=== PATIENT | male | born 1940 | race Caucasian/White ===

== ENCOUNTER 2022-06-29 09:29 | Outpatient (CLI) | payer OTHER, SELFPAY ==
[2022-06-29 11:31] LABS: Chloride* 103 mmol/L (96-114); Potassium* 4.2 mmol/L (3.6-5.1); Sodium* 138 mmol/L (135-149)
[2022-06-29 11:33] LABS: Cholesterol* 134 mg/dL (90-199); Creatinine* 0.9 mg/dL (0.5-1.5); Estimated Glomerular Filt Rate 84 ml/min
[2022-06-29 11:34] LABS: Blood Urea Nitrogen* 22 mg/dL (7-30); Carbon Dioxide* 30 mmol/L (20-32); Glucose* 100 mg/dL (60-115); Triglycerides* 55 mg/dL (40-149)
[2022-06-29 11:35] LABS: Calcium* 8.8 mg/dL (8.4-10.6); HDL Cholesterol* 54 mg/dL (>=40); LDL Cholesterol Calculated 69 mg/dL (<100)
== END 2022-06-29 09:30 | disposition home or self-care (01) ==
PROVIDERS: PCP Internal Medicine; Visit Provider Internal Medicine
DX: Z00.00 Encounter for general adult medical examination without abnormal findings (principal); I10 Essential (primary) hypertension; I25.10 Atherosclerotic heart disease of native coronary artery without angina pectoris; E66.9 Obesity, unspecified; Z12.5 Encounter for screening for malignant neoplasm of prostate
CPT/HCPCS: 80048; 80061

== ENCOUNTER 2022-09-09 16:50 | Emergency (ER) | payer OTHER, SELFPAY ==
[2022-09-09 17:03] VITALS: BP 183/81; PULSE 96; RESP 16; TEMP 36.3; O2SAT 97
== END 2022-09-09 18:31 | disposition left against medical advice (07) ==
LOC: ED 18:31
PROVIDERS: PCP Internal Medicine
DX: Z53.21 Procedure and treatment not carried out due to patient leaving prior to being seen by health care provider (principal)
CPT/HCPCS: 99199

== ENCOUNTER 2022-09-11 08:44 | Outpatient (CLI) | payer OTHER, SELFPAY ==
[2022-09-11 10:09] LABS: Chloride* 106 mmol/L (96-114); Sodium* 143 mmol/L (135-149)
[2022-09-11 10:11] LABS: Creatinine* 0.9 mg/dL (0.5-1.5); Estimated Glomerular Filt Rate 84 ml/min
[2022-09-11 10:12] LABS: Blood Urea Nitrogen* 26 mg/dL (7-30); Calcium* 9.1 mg/dL (8.4-10.6); Carbon Dioxide* 33 mmol/L (20-32); Glucose* 108 mg/dL (60-115)
== END 2022-09-11 08:45 | disposition home or self-care (01) ==
LOC: NFLDREF 08:44
PROVIDERS: PCP Internal Medicine; Visit Provider Internal Medicine
DX: I25.10 Atherosclerotic heart disease of native coronary artery without angina pectoris (principal); I48.19 Other persistent atrial fibrillation
CPT/HCPCS: 80048

== ENCOUNTER 2023-06-23 09:18 | Outpatient (CLI) | payer OTHER, SELFPAY | END 2023-06-23 09:19 | disposition home or self-care (01) | LOC: NFLDREF 20:51 | PROVIDERS: PCP Internal Medicine; Referring Provider Internal Medicine; Visit Provider Internal Medicine | DX: R31.9 Hematuria, unspecified (principal); N30.90 Cystitis, unspecified without hematuria; R39.9 Unspecified symptoms and signs involving the genitourinary system | CPT/HCPCS: 87086; 87186 ==

== ENCOUNTER 2023-07-12 07:32 | Outpatient (CLI) | payer OTHER, SELFPAY | END 2023-07-12 07:33 | disposition home or self-care (01) | LOC: NFLDREF 07-16 10:07 | PROVIDERS: PCP Internal Medicine; Referring Provider Internal Medicine; Visit Provider Internal Medicine | DX: E78.5 Hyperlipidemia, unspecified (principal); I10 Essential (primary) hypertension | CPT/HCPCS: 80048; 80061 ==

== ENCOUNTER 2023-08-12 13:56 | Outpatient (CLI) | payer OTHER, SELFPAY | END 2023-08-12 13:57 | disposition home or self-care (01) | LOC: NFLDREF 08-13 11:15 | PROVIDERS: PCP Internal Medicine; Referring Provider Internal Medicine; Visit Provider Registered Nurse | DX: R10.9 Unspecified abdominal pain (principal); N39.0 Urinary tract infection, site not specified | CPT/HCPCS: 87086; 87186 ==

== ENCOUNTER 2023-09-07 13:05 | Outpatient (CLI) | payer OTHER, SELFPAY ==
--- OUTSIDE RECORDS SUMMARY | 2023-09-10 13:51 | XMS_ITS | Clinical Summary ---
Author Name Unknown Organization [facility] Address [place], [place] [address] Care Team Providers Care Clinical Research Director Name Role Phone Steven Shabazz MD Primary Care Provider Active Problems Problem Noted Date Diagnosed Date PHT (pulmonary hypertension) 08/01/2021 Coronary artery disease invo lving [place] coronary artery of [place] heart without angina pectoris 07/26/2020 Morbid obesity due to excess calories 07/26/2020 HTN (hypertension) 07/26/2020 Mixed hyperlipidemia 07/26/2020 Atrial flutter 07/26/2020 Social History Tobacco Use Types Packs/Day Years Used Date Smoking Tobacco: Never Assessed Social Connections Answer Date Recorded Frequency of Communication with Friends and Fami ly Not on file 08/18/2021 Financial Resource Strain Answer Date R ecorded Difficulty of Paying Living Expenses Not on file 08/18/2021 Difficulty of Paying Living Expenses Not on file 08/18/2021 Sex and Gender Information Value Date Recorded Sex Assigned at Not on file Gender Identity Not on file Sexual Orientation Not on file Plan of Treatment Health Maintenance Due Date Last Done Comments Tdap 1949 Depression screening for age 12+ 1950 BMI (ht and wt on same day) for age 18+ 1956 Tetanus booster 1958 Zoster (shingles) series for age 50+ (1 of 2) 1988 Medicare Wellness for age 65+ 2003 Pneumococcal series for age 65+ (1 of 1 - PCV) 2003 COVID-19 vaccine series ( season) 2023 05/08/2022, 12/03/2021, 06/03/2021, Additional history exists Influenza for age 65+ 04/23/2023 Care Teams Clinical Research Director Relationship Specialty Start Date End Date Steven Shabazz MD [address] [place] [address] PCP - General Internal Medicine 07/15/20
== END 2023-09-07 13:06 | disposition home or self-care (01) ==
LOC: NFLDREF 09-10 13:49
PROVIDERS: PCP Internal Medicine; Referring Provider Internal Medicine; Visit Provider Internal Medicine
DX: R30.0 Dysuria (principal); N30.90 Cystitis, unspecified without hematuria; F03.90 Unspecified dementia, unspecified severity, without behavioral disturbance, psychotic disturbance, mood disturbance, and anxiety; R32 Unspecified urinary incontinence
CPT/HCPCS: 87086; 87186

== ENCOUNTER 2023-09-15 13:43 | Outpatient (CLI) | payer OTHER, SELFPAY | END 2023-09-15 13:44 | disposition home or self-care (01) | LOC: RAD 13:50 | PROVIDERS: PCP Internal Medicine; Visit Provider Internal Medicine | DX: I48.19 Other persistent atrial fibrillation (principal); I51.7 Cardiomegaly; I35.1 Nonrheumatic aortic (valve) insufficiency; I34.0 Nonrheumatic mitral (valve) insufficiency; I07.1 Rheumatic tricuspid insufficiency; I25.10 Atherosclerotic heart disease of native coronary artery without angina pectoris | CPT/HCPCS: 93306 ==

== ENCOUNTER 2023-09-21 15:38 | Outpatient (REF) | payer OTHER, SELFPAY ==
[2023-09-21 15:48] LABS: Basophils Absolute Auto 0.02 K/uL (0.00-0.30); Basophils Percent Auto 0.4 % (0.0-3.0); Eosinophils Absolute Auto 0.26 K/uL (0.00-0.50); Eosinophils Percent Auto 5.3 % (0.0-7.0); Hematocrit 41.5 % (37.0-53.0); Hemoglobin* 13.3 gm/dL (13.5-17.5); Immature Granulocytes Abs Auto 0.01 K/uL (0.00-0.30); Immature Granulocytes Pct Auto 0.2 %; Lymphocytes Absolute Auto 1.02 K/uL (0.90-2.90); Mean Corpuscular HGB Conc 32 gm/dL (32-36); Mean Corpuscular Hemoglobin 32 pg (26-34); Mean Corpuscular Volume 100 fL (80-100); Monocytes Percent Auto 9.7 % (0.0-11.0); Neutrophils Absolute Auto 3.08 K/uL (1.7-7.0); Neutrophils Percent Auto 63.4 % (42.0-72.0); Platelet Count* 189 K/uL (140-440); RDW Coefficient of Variation % 14.4 % (11.5-15.5); Red Blood Count 4.15 m/uL (4.30-5.90); White Blood Count* 4.86 K/uL (4.50-11.00)
[2023-09-21 16:08] LABS: Slide Review Reflex No
[2023-09-21 16:49] LABS: Albumin* 4.1 g/dL (3.3-5.0); Chloride* 105 mmol/L (96-114)
[2023-09-21 16:50] LABS: Potassium* 4.7 mmol/L (3.6-5.1); Sodium* 145 mmol/L (135-149)
[2023-09-21 16:52] LABS: Alkaline Phosphatase* 73 U/L (40-150); Anion Gap 12 mEq/L (7-15); Aspartate Amino Transferase* 37 U/L (12-35); Bilirubin Direct* 0.4 mg/dL (0.0-0.5); Bilirubin Total* 1.2 mg/dL (0.1-1.5); Blood Urea Nitrogen* 17 mg/dL (7-30); Carbon Dioxide* 28 mmol/L (20-32); Estimated Glomerular Filt Rate 74 ml/min; Total Protein* 6.8 g/dL (6.0-8.3)
[2023-09-21 16:53] LABS: Alanine Aminotransferase* 19 U/L (4-50); Calcium* 9.2 mg/dL (8.4-10.6); Glucose* 100 mg/dL (60-115)
[2023-09-21 17:11] LABS: NT Pro B Type NatriureticPept* 17100 pg/mL
[2023-09-23 20:56] LABS: Anti-Nuclear Ab(ANA)IgG ELISA None Detected (None Detected)
== END 2023-09-21 15:39 | disposition home or self-care (01) ==
LOC: NPINS 15:38
PROVIDERS: Internal Medicine; PCP Internal Medicine
DX: I50.32 Chronic diastolic (congestive) heart failure (principal)
CPT/HCPCS: 80048; 80076; 83880; 84443; 85025; 86039

== ENCOUNTER 2023-10-12 11:10 | Outpatient (REF) | payer OTHER, SELFPAY ==
[2023-10-12 11:37] LABS: Chloride* 103 mmol/L (96-114); Potassium* 3.9 mmol/L (3.6-5.1); Sodium* 137 mmol/L (135-149)
[2023-10-12 11:40] LABS: Anion Gap 6 mEq/L (7-15); Blood Urea Nitrogen* 21 mg/dL (7-30); Carbon Dioxide* 28 mmol/L (20-32); Creatinine* 0.9 mg/dL (0.5-1.5); Estimated Glomerular Filt Rate 84 ml/min
[2023-10-12 11:41] LABS: Glucose* 95 mg/dL (60-115)
== END 2023-10-12 11:11 | disposition home or self-care (01) ==
LOC: NPINS 11:10
PROVIDERS: PCP Internal Medicine
DX: I50.32 Chronic diastolic (congestive) heart failure (principal)
CPT/HCPCS: 80048

== ENCOUNTER 2024-03-21 03:43 | Outpatient (CLI) | payer OTHER, SELFPAY | END 2024-03-21 03:44 | disposition home or self-care (01) | LOC: AMB 03-22 03:08 | PROVIDERS: PCP Internal Medicine; Visit Provider Family Medicine | DX: R53.1 Weakness (principal) | CPT/HCPCS: A0998 ==

== ENCOUNTER 2024-03-23 08:02 | Outpatient (CLI) | payer OTHER, SELFPAY | END 2024-03-23 08:03 | disposition home or self-care (01) | LOC: NFLDREF 03-24 07:23 | PROVIDERS: PCP Internal Medicine; Referring Provider Internal Medicine; Visit Provider Internal Medicine | DX: R30.0 Dysuria (principal); N30.00 Acute cystitis without hematuria; R54 Age-related physical debility | CPT/HCPCS: 87086; 87186 ==

== ENCOUNTER 2024-04-03 13:39 | Outpatient (CLI) | payer OTHER, SELFPAY | END 2024-04-03 13:40 | disposition home or self-care (01) | LOC: RAD 13:39 | PROVIDERS: PCP Internal Medicine; Visit Provider Internal Medicine | DX: I27.20 Pulmonary hypertension, unspecified (principal); I51.7 Cardiomegaly; I35.1 Nonrheumatic aortic (valve) insufficiency; I34.0 Nonrheumatic mitral (valve) insufficiency; I07.1 Rheumatic tricuspid insufficiency | CPT/HCPCS: 93306 ==

== ENCOUNTER 2024-04-25 08:47 | Outpatient (CLI) | payer OTHER, SELFPAY ==
--- OUTSIDE RECORDS SUMMARY | 2024-04-25 08:52 | XMS_ITS | Clinical Summary ---
Author Organization [facility] Address [place], [place] [address] Care Team Providers Care Consultant [employer]. Vice President [employer] ) Name Role Phone Yaima Mcclure MD Primary Care Provider [phone]- [phone] Allergies No known active allergies Medications Medication Sig Dispensed Refills Start Date End Date Status atorvastatin (LIPITOR) 40 mg tablet Take 20 mg by mouth at bedtime. 08/10/2023 Active atenoloL (TENORMIN) 50 mg tablet Take 50 mg by mouth two times daily. Active DILT-XR 120 mg Extended-Release capsule Take 120 mg by mouth once daily. 08/29/2023 Active rivaroxaban (XARELTO) 20 mg tablet Take 20 mg by mouth once daily with evening meal. Active tamsulosin (FLOMAX) 0.4 mg capsule Take 0.4 mg by mouth at bedtime. Active clonazePAM (KLONOPIN) 0.5 mg tablet Take 0.5 mg by mouth at bedtime. Active donepeziL (ARICEPT) 5 mg tablet Take 5 mg by mouth once daily. 09/11/2023 Active zinc acetate (Galzin) 50 mg (zinc) cap Take by mouth. 50 mg 2 days a week Active Sennosides (Senna) 8.6 mg cap Take by mouth once daily if needed for Constipation. Active losartan (COZAAR) 25 mg tabletIndications :PHT (pulmonary hypertension) (HC) Take 1 Tablet (25 mg) by mouth two times daily. 60 Tablet 2 04/19/2024 Active hydroCHLOROthiazi de 25 mg tabletIndications :HTN (hypertension),PH T (pulmonary hypertension) (HC),Shortness of breath Take 1 Tablet (25 mg) by mouth once daily. 90 Tablet 3 04/19/2024 Active losartan (COZAAR) 25 mg tabletIndications :HTN (hypertension),PH T (pulmonary hypertension) (HC) Take 1 Tablet (25 mg) by mouth once daily. 30 Tablet 6 09/29/2023 04/19/2024 Discontinued (*Medication adjustment) Active Problems Problem Noted Date Diagnosed Date PHT (pulmonary hypertension) 08/01/2021 Coronary artery disease invo lving [place] coronary artery of [place] heart without angina pectoris 07/26/2020 Morbid obesity due to excess calories 07/26/2020 HTN (hypertension) 07/26/2020 Mixed hyperlipidemia 07/26/2020 Atrial flutter 07/26/2020 Encounters Date Type Department Care Team Description 04/19/2024 2:00 PM CDT Office Visit [facility] [address] [facility] [address] [place] [address] Maikel Mitchell MD CV Heart Failure Est (OVERDUE F/U. ECHO PRIOR at [facility] on 04/03 - DX: PHT (pulmonary hypertension) (HC) [I27.20] /WATCH FOR ECHO //PT STATES HE IS DOING GREAT./) 04/19/2024 Travel 04/03/2024 2:00 PM CDT Ancillary Procedure [place] [facility] [address] [place] [address] 02/08/2024 [place] [facility] [place] [address] [facility] [address] [place] [address] Maikel Mitchell MD 01/28/2024 Telephone [facility] [place] [address] [place] [address] Maikel Mitchell MD Cardiology Appointment from Last 3 Months Social History Tobacco Use Types Packs/Day Years Used Date Smoking Tobacco: Former Cigarettes Smokeless Tobacco: Never Tobacco Cessation:Counseling Given: Not Answered Alcohol Use Standard Drinks/Week Comments Yes 7 (1 standard drink = 0.6 oz pur e alcohol) one glass of wine each night Social Connections Answer Date Recorded Frequency of [...] on file Sexual Orientation Not on file Obstetrics History Last Filed Vital Signs Vital Sign Reading Time Taken Comments Blood Pressure 134/62 04/19/2024 1:56 PM CDT Pulse 63 04/19/2024 1:56 PM CDT Temperature - - Respiratory Rate - - Oxygen Saturation 98% 04/19/2024 1:56 PM CDT Inhaled Oxygen Concentration - - Weight 67.7 kg (149 lb 4.8 oz) 04/19/2024 1:56 P M CDT Height 160 cm (5' 3) 04/19/2024 1:56 PM CDT Body Mass Index 26.45 04/19/2024 1:56 PM CDT Plan of Treatment Health Maintenance Due Date Last Done Comments Tdap 1949 Depression screening for age 12+ 1950 Tetanus booster 1958 Zoster (shingles) series for age 50+ (1 of 2) 1988 RSV vaccine for adults or pr egnancy (1 - 1-dose 60+ series) 1998 Medicare Wellness for age 65+ 2003 Pneumococcal series for age 65+ (1 of 1 - PCV) 2003 COVID-19 vaccine series ( - 24 season) 2024 Influenza for age 65+ 04/23/2024 BMI (ht and wt on same day) for age 18+ 04/19/2025 0 04/19/2024, 09/29/2023 Procedures Procedure Name Priority Date/Time Associated Diagnosis Comments EKG 12 LEAD Today 04/19/2024 1:58 PM CDT HTN (hypertension) PHT (pulmonary hypertension) (HC) ECHO TTE COMPLETE WO CONTRAST Routine 04/03/2024 2:45 PM CDT PHT (pulmonary hypertension) (HC) from Last 3 Months Results * EKG 12 LEAD (04/19/2024 1:58 PM CDT) Interpretation Atrial fibrillation Nonspecific ST and T wave abnormality Abnormal ECG No previous ECGs available Ventricular Rate 63 BPM Atrial Rate BPM P-R Interval ms QRS Duration 104 ms QT 432 ms QTc 442 ms P [place] degrees R [place] 39 degrees T [place] -67 degrees 04/19/2024 1:58 PM CDT 04/21/2024 8:29 AM CDT Maikel Mitchell MD EKG ORD * ECHO TTE COMPLETE WO CONTRAST (04/03/2024 2:45 PM CDT) AORTIC VALVE MEAN PG 4 mmHg EJECTION FRACTION 39 % PEAK TR VELOCITY 3.6 m/s LVEDD 5.3 cm MITRAL VALVE MR ERO 17 mm2 EJECTION FRACTION 40 - 45% Anatomical Region Laterality Modality Ultrasound 04/03/2024 1:51 PM CDT Narrative 04/03/2024 2:59 PM CDT ECHOCARDIOGRAM NACHO GREGORY ?Accession#: ?? [id number] : ?1940 83 years Study Date: ?? 04/03/2024 1:51:05 PM Gender: M ? BP: ? 150/76 mmHg Height: 168.00 cm ? BSA: ?2.01 m? ? ? Weight: 91.00 kg ?Tech: ? MJW ?Referring MD: MAIKEL MITCHELL Site: ? [facility] Reading Location: Mobile-OP Patient Location: Outpatient. Procedure: 2D, Color Doppler and Spectral Doppler. Indication for study: Pulmonary HTN Cardiac Rhythm: Irregular.Study quality: Good. Final Impressions: 1. Normal LV size, mildly increased wall thickness, mildly reduced global systolic function with an estimated EF of 40 - 45%. 2. Right ventricular cavity size is normal, global systolic RV function is mildly reduced. 3. Severe biatrial enlargement. 4. The aortic valve is trileaflet and sclerotic, no stenosis and mild to moderate regurgitation. 5. The mitral valve is normal, moderate mitral regurgitation. 6. Moderate tricuspid regurgitation. 7. Severely increased estimated pulmonary pressures by tricuspid regurgitation velocity and right atrial pressure (50 mmHg plus RAP). 8. The aortic sinus is normal for age/sex/bsa with a maximal diameter of 3.9 cm. 9. Compared to prior study, LVEF is lower, PA pressures are lower. Chamber Sizes and Function Normal left ventricular size, mildly increased wall thickness, mildly reduced global systolic function with an estimated EF of 40 - 45%. Left atrial size is severely enlarged. Right ventricular cavity size is normal, global systolic RV function is mildly reduced. The right atrium is severely enlarged. Right atrial volume index is 57 ml/m? ? ?. Right atrial area is 32 cm? ? ?. The pulmonary artery is of normal size and origin. The sinus of Valsalva is normal for age/sex/bsa. The ascending aorta is normal sized. Valves, RV Pressures and Diastolic Function The aortic valve is trileaflet and sclerotic, no stenosis and mild to moderate regurgitation. The mitral valve is normal in structure, moderate mitral regurgitation. Indeterminate pattern of LV diastolic filling. The tricuspid valve is normal in structure. Tricuspid regurgitation is moderate. The tricuspid regurgitant velocity is 3.6 m/s, the estimated right ventricular systolic pressure is 50 mmHg plus right atrial pressure. There is severely increased estimated pulmonary pressure by tricuspid regurgitation velocity and right atrial pressure. The pulmonic valve is normal. No pulmonary regurgitation. Masses, Effusion, Shunts There is no pericardial effusion. The inferior vena cava is dilated, respiratory size variation less than 50%. No left to right shunting was detected by limited color flow Doppler interrogation of the interatrial septum. MEASUREMENTS AND CALCULATIONS 2-D Measurements and LV Function: LVID (d) 5.2 cm LV FS% (2D) ?? 19 % LVID (s) 4.2 cm LVOT diameter 2.6 cm IVS (d) ??1.2 cm HR ?51 bpm LVPW (d) 1.2 cm LA Vol index ??96 ml/m2 Ao Sinus 3.9 cm RA Vol index ??57 ml/m2 Asc Ao ?? 3.1 cm RA area ? 32 cm? ? ? LA ? 6.0 cm RV Max 4C (d) 3.2 cm Diastology: Mitral ?Tissue Doppler E Peak 1.2 m/s ??e', Septum ? 0.07 m/s DT ? 115 msec e', Lateral ?0.08 m/s ?E/e' Average ?? 16.28 Aortic Valve: Vmax ? 1.3 m/s ??NOEMI (V) ?? 2.67 cm? AI P 1/2 638 msec VTI ?0.33 m ?? NOEMI (I) ?? 2.53 cm? ? ? LVOT V max ? 0.7 m/s ??Max PG ?6 mmHg LVOT VTI ? 0.16 m ?? Mean PG ?? 4 mmHg SV ? 84 ml ?Dim Index 0.49 SV index ? 42 ml/m? ? ? CO ?4.3 l/min AV Ejection Time 0.33 sec CI ?2.1 l/min/m? ? ? AV Flow Rate ? 252 ml/s Mitral Valve: MVA ? 6.6 cm? ? ? MR ERO ??0.17 cm? ? ? MV P 1/2 ??33 msec MR Vol. 36 ml MV Mean G 2 mmHg ??MR TVI ??2.14 m MV VTI ?0.52 m Tricuspid Valve and estimated PA pressures: TR Vmax 3.6 m/s TAPSE 1.0 cm TR maxG 50 mmHg Pulmonic Valve: PV AT 58 msec . This study was interpreted by an [facility] accredited facility. CC: HIM ([facility]) [facility]. ??Final ?? Procedure Note Don Marc MD - 04/03/2024 ECHOCARDIOGRAM NACHO GREGORY : 1940 83 years Study Date: 04/03/2024 1:51:05 PM Gender: M BP: 150/76 mmHg Height: 168.00 cm BSA: 2.01 m? ? ? Weight: 91.00 kg Tech: SHALONDA Referring MD: MAIKEL MITCHELL Site: [facility] Reading Location: Mobile-OP Patient Location: Outpatient. Procedure: 2D, Color Doppler and Spectral Doppler. Indication for study: Pulmonary HTN Cardiac Rhythm: Irregular.Study quality: Good. Final Impressions: 1. Normal LV size, mildly increased wall thickness, mildly reduced globalsystolic function with an estimated EF of 40 - 45%. 2. Right ventricular cavity size is normal, global systolic RV functionis mildly reduced. 3. Severe biatrial enlargement. 4. The aortic valve is trileaflet and sclerotic, no stenosis and mild tomoderate regurgitation. 5. The mitral valve is normal, moderate mitral regurgitation. 6. Moderate tricuspid regurgitation. 7. Severely increased estimated pulmonary pressures by tricuspidregurgitation velocity and right atrial pressure (50 mmHg plus RAP). 8. The aortic sinus is normal for age/sex/bsa with a maximal diameter of3.9 cm. 9. Compared to prior study, LVEF is lower, PA pressures are lower. Chamber Sizes and Function Normal left ventricular size, mildly increased wall thickness, mildlyreduced global systolic function with an estimated EF of 40 - 45%. Leftatrial size is severely enlarged. Right ventricular cavity size is normal,global systolic RV function is mildly reduced. The right atrium isseverely enlarged. Right atrial volume index is 57 ml/m? ? ?. Right atrialarea is 32 cm? ? ?. The pulmonary artery is of normal size and origin. Thesinus of Valsalva is normal for age/sex/bsa. The ascending aorta is normalsized. Valves, RV Pressures and Diastolic Function The aortic valve is trileaflet and sclerotic, no stenosis and mild tomoderate regurgitation. The mitral valve is normal in structure, moderatemitral regurgitation. Indeterminate pattern of LV diastolic filling. Thetricuspid valve is normal in structure. Tricuspid regurgitation ismoderate. The tricuspid regurgitant velocity is 3.6 m/s, the estimatedright ventricular systolic pressure is 50 mmHg plus right atrial pressure.There is severely increased estimated pulmonary pressure by tricuspidregurgitation velocity and right atrial pressure. The pulmonic valve isnormal. No pulmonary regurgitation. Masses, Effusion, Shunts There is no pericardial effusion. The inferior vena cava is dilated,respiratory size variation less than 50%. No left to right shunting wasdetected by limited color flow Doppler interrogation of the interatrialseptum. MEASUREMENTS AND CALCULATIONS 2-D Measurements and LV Function: LVID (d) 5.2 cm LV FS% (2D) 19 % LVID (s) 4.2 cm LVOT diameter 2.6 cm IVS (d) 1.2 cm HR 51 bpm LVPW (d) 1.2 cm LA Vol index 96 ml/m2 Ao Sinus 3.9 cm RA Vol index 57 ml/m2 Asc Ao 3.1 cm RA area 32 cm? ? ? LA 6.0 cm RV Max 4C (d) 3.2 cm Diastology: Mitral Tissue Doppler E Peak 1.2 m/s e', Septum 0.07 m/s DT 115 msec e', Lateral 0.08 m/s E/e' Average 16.28 Aortic Valve: Vmax 1.3 m/s NOEMI (V) 2.67 cm? ? ? AI P 1/2 638 msec VTI 0.33 m NOEMI (I) 2.53 cm? ? ? LVOT V max 0.7 m/s Max PG 6 mmHg LVOT VTI 0.16 m Mean PG 4 mmHg SV 84 ml Dim Index 0.49 SV index 42 ml/m? ? ? CO 4.3 l/min AV Ejection Time 0.33 sec CI 2.1 l/min/m? ? ? AV Flow Rate 252 ml/s Mitral Valve: MVA 6.6 cm? ? ? MR ERO 0.17 cm? ? ? MV P 1/2 33 msec MR Vol. 36 ml MV Mean G 2 mmHg MR TVI 2.14 m MV VTI 0.52 m Tricuspid Valve and estimated PA pressures: TR Vmax 3.6 m/s TAPSE 1.0 cm TR maxG 50 mmHg Pulmonic Valve: PV AT 58 msec . This study was interpreted by an [facility] accredited facility. CC: HIM (med records) [facility]. Final Maikel Mitchell MD ECHO ORD from Last 3 Months Care Teams Consultant [employer]. Vice President [employer] ) Relationship Specialty Start Date End Date Yaima Mcclure MD [address] [place] [address] PCP - General Internal Medicine 09/29/23
[2024-04-25 09:52] LABS: NT Pro B Type NatriureticPept* 8630 pg/mL
[2024-04-26 14:56] LABS: Chloride* 104 mmol/L (96-114); Potassium* 4.3 mmol/L (3.6-5.1); Sodium* 137 mmol/L (135-149)
[2024-04-26 14:59] LABS: Anion Gap 6 mEq/L (7-15); Blood Urea Nitrogen* 36 mg/dL (7-30); Calcium* 8.9 mg/dL (8.4-10.6); Carbon Dioxide* 27 mmol/L (20-32); Creatinine* 1.4 mg/dL (0.5-1.5); Estimated Glomerular Filt Rate 49 ml/min; Glucose* 116 mg/dL (60-115)
== END 2024-04-25 08:48 | disposition home or self-care (01) ==
PROVIDERS: PCP Internal Medicine; Visit Provider Internal Medicine
DX: I27.20 Pulmonary hypertension, unspecified (principal)
CPT/HCPCS: 36415; 80048; 83880

== ENCOUNTER 2024-05-21 16:27 | Emergency (ER) | payer OTHER, SELFPAY ==
[2024-05-21 16:41] VITALS: BP 171/56; PULSE 61; RESP 18; TEMP 36.8; O2SAT 98; BMI 30.5
--- NOTE | 2024-05-21 16:54 | CRLHL7_ITS ---
For Patients: As a result of the Century Cures Act, medical imaging exams and procedure reports are released immediately into your electronic medical record. You may view this report before your referring provider. If you have questions, please contact your health care provider. Indication: Constipation, recent abdominal surgery Technique: Abdomen 3 view. Comparison: None. Findings/Impression: Bowel: Nonobstructive bowel gas pattern. Moderate stool burden. Soft tissues: No free air. Clips throughout the pelvis, likely related to hernia repair. Bones: Mild degenerative disease of the spine. Dictated by Roselia Gutierrez MD @ 05/21/2024 5:28:47 PM (Electronically Signed)
--- NOTE | 2024-05-21 16:55 | ED.GENADULT ---
HPI - General Adult General Chief complaint: Constipation Stated complaint: bowel surgery, padding coming out Time Seen by Provider: 05/21/24 16:32 History of Present Illness HPI narrative: [age] year white male who lives in [facility] with his who reports that he has had bowel movement problems over the last couple of days he typically has intermittent trouble with constipation. He has had this chronically. He has been trying to self impact. She presents to the ER for evaluation. He has dimension is has very unclear story, I did consult with his regarding why he is here today. He does report that he had a bowel movement today. Related Data Home Medications ?Medication ?Instructions ?Recorded ?Confirmed zinc gluconate 50 mg tablet 50 mg PO .Wednesday & 09/04/22 03/23/24 clobetasol 0.05 % topical cream 1 applic topical DIRECTED PRN 01/21/23 03/23/24 desonide 0.05 % topical cream 1 applic topical BID PRN 01/21/23 03/23/24 ketoconazole 2 % shampoo 1 applic topical DIRECTED PRN 01/21/23 03/23/24 fexofenadine 180 mg tablet 180 mg PO QDAY PRN 03/18/23 03/23/24 (Aller-Fex) fluticasone 500 mcg-salmeterol 50 1 inh inhalation BID PRN 03/18/23 03/23/24 mcg/dose blistr powdr for inhalation triamcinolone acetonide 0.1 % 1 applic topical BID-TID 03/22/23 03/23/24 topical cream sennosides 8.6 mg capsule (senna) 17.2 mg PO QDAY 09/07/23 03/23/24 losartan 25 mg tablet 25 mg PO DAILY 02/15/24 03/23/24 Previous Rx's ?Medication ?Instructions ?Recorded sodium phosphates 19 gram-7 118 ml DC QDAY PRN constipation 09/09/22 gram/118 mL enema (Fleet Enema) #266 mL albuterol sulfate 90 mcg/actuation 2 inh inhalation Q6H PRN shortness 07/19/23 aerosol inhaler of breath or wheezing #8.5 grams atenolol 50 mg tablet 50 mg PO BID #180 tabs 07/19/23 atorvastatin 40 mg tablet 20 mg (1/2 x 40 mg) PO .Bedtime 07/19/23 #45 tabs diltiazem HCl 120 mg 120 mg PO DAILY #90 caps 07/19/23 capsule,extended release 24 hr donepezil 5 mg tablet (Aricept) 5 mg PO QDAY #90 tabs 07/19/23 rivaroxaban 20 mg tablet 20 mg PO DAILY #90 tabs 07/19/23 tamsulosin 0.4 mg capsule 0.4 mg PO BID #180 caps 07/19/23 clonazepam 0.5 mg tablet 0.5 mg PO QDAY Anxiety #90 tabs 03/08/24 atenolol 50 mg tablet 50 mg PO BID #14 tabs 04/26/24 Allergies Allergy/AdvReac Type Severity Reaction Status Date / Time No Known Drug Allergies Allergy Verified 03/23/24 07:57 Review of Systems Status of ROS: Reports: 6 or more systems reviewed and unremarkable except as noted in History and below and unobtainable due to mental status PFS PFS Medical History Health care directive on file ?Z78.9 - Other specified health status (ICD-10) Surgical History History of umbilical hernia repair (1997) ?Z98.890 - Other specified postprocedural states (ICD-10) ?Z87.19 - Personal history of other diseases of the digestive system (ICD-10) History of tonsillectomy and adenoidectomy ?Z90.89 - Acquired absence of other organs (ICD-10) History of inguinal hernia repair (1983) ?Z98.890 - Other specified postprocedural states (ICD-10) ?Z87.19 - Personal history of other diseases of the digestive system (ICD-10) History of coronary artery bypass surgery (06/22/00) ?Z95.1 - Presence of aortocoronary bypass graft (ICD-10) History of bilateral cataract extraction ?Z98.41 - Cataract extraction status, right eye (ICD-10) ?Z98.42 - Cataract extraction status, left eye (ICD-10) History of appendectomy (1982) ?Z90.49 - Acquired absence of other specified parts of digestive tract (ICD-10) Social History Narrative: Hx tobacco use What is your current living situation?: I presently have a place to live Problems where you live: no known problems In the past 12 months, utilities in danger of being shut off: no In past 12 months, lack of transportation kept you from medical appts, meetings, work, or getting things needed for daily living: no In the past 12 mos, have been you worried that your food would run out before you had money to buy more?: never true In the past 12 mos, the food you bought just didn't last and you didn't have money to buy more?: never true Smoking Status: Never smoker How often does anyone, including family, friends and others, physically hurt you: never How often does anyone, including family, friends and others, insult or talk down to you: never How often does anyone, including family, friends and others, threaten you with harm: never How often does anyone, including family, friends and others, scream or curse at you: never Little interest or pleasure in doing things: not at all Feeling down, depressed, or hopeless: not at all Exam Narrative: Exam Narrative: Objective: Vital signs show elevated blood pressure otherwise unremarkable Abdomen is benign soft nontender no masses no peritonitis bowel sounds normoactive Extremities normal Pulse regular Const: Vital Signs, click to edit/add: Vital Signs - 24 hr 05/21/24 16:41 Temperature 98.3 F Pulse Rate [Pulse Oximeter] 61 Respiratory Rate 18 Blood Pressure [Ri ght Upper Arm] 171/56 H Pulse Oximetry 98 Oxygen Delivery Me thod Room Air Course Vital Signs Vital signs: Initial Vital Signs Temperature 98.3 F 05/21/24 16:41 Temperature Source Temporal Artery Scan 05/21/24 16:41 Pulse Rate 61 05/21/24 16:41 Respiratory Rate 18 05/21/24 16:41 Blood Pressure 171/56 H 05/21/24 16:41 Blood Pressure Mean 94 05/21/24 16:41 Blood Pressure Position Supine 05/21/24 16:41 Pulse Oximetry 98 05/21/24 16:41 Oxygen Delivery Method Room Air 05/21/24 16:41 Vital Signs Temperature 98.3 F 05/21/24 16:41 Pulse Rate 61 05/21/24 16:41 Respiratory Rate 18 05/21/24 16:41 Blood Pressure 171/56 H 05/21/24 16:41 Pulse Oximetry 98 05/21/24 16:41 Oxygen Delivery Method Room Air 05/21/24 16:41 Temperature 98.3 F 05/21/24 16:41 Pulse Rate 61 05/21/24 16:41 Respiratory Rate 18 05/21/24 16:41 Blood Pressure 171/56 H 05/21/24 16:41 Pulse Oximetry 98 05/21/24 16:41 Oxygen Delivery Method Room Air 05/21/24 16:41 Medical Decision Making MDM Narrative Medical decision making narrative: 83-year-old male with history of probable constipation, chronic constipation. Will check a flat and upright abdominal x-ray. If he is constipated will given Enem[place] enema. Addendum 5:22 p.m. the patient's x-ray shows diffuse increased bowel content, probably constipation, but also does not appear to be too severe, he does appear to have air throughout his colon. Will review radiologist's report. We will give him an Enemeez enema and see if we get some results. He should be on a capful of MiraLax twice a day for the next few days as well which I think will help him pass some of his stool. I will write that on his discharge note Discharge Plan Discharge Clinical Impression: Chronic constipation Patient Disposition: Home w/ Parent or Adult Condition: Improved Additional Instructions: Recommend 1 cap of MiraLax inglass of water twice a day for the next week until looser stools. Recommend increased fiber and fluid in the diet. Recheck in the next few days if not improving. Activity Level: No Restrictions Discharge Diet: High Fiber Prescriptions: No Action zinc gluconate 50 mg tablet 50 mg PO .Wednesday & Fleet Enema 19-7 gram/118 mL enema 118 ml DC QDAY PRN (Reason: constipation) Qty: 266 2RF fexofenadine [Aller-Fex] 180 mg tablet 180 mg PO QDAY PRN atenolol 50 mg tablet 50 mg PO BID Qty: 180 3RF albuterol sulfate 90 mcg/actuation HFA aerosol inhaler 2 inh inhalation Q6H PRN (Reason: shortness of breath or wheezing) Qty: 8.5 3RF atorvastatin 40 mg tablet 20 mg PO .Bedtime Qty: 45 3RF diltiazem HCl 120 mg capsule,extended release 24hr 120 mg PO DAILY Qty: 90 3RF donepezil [Aricept] 5 mg tablet 5 mg PO QDAY Qty: 90 3RF tamsulosin 0.4 mg capsule 0.4 mg PO BID Qty: 180 3RF rivaroxaban 20 mg tablet 20 mg PO DAILY Qty: 90 3RF Rx Instructions: WITH MEAL triamcinolone acetonide 0.1 % cream 1 applic topical BID-TID senna 8.6 mg capsule 17.2 mg PO QDAY clobetasol 0.05 % cream 1 applic topical DIRECTED PRN Rx Instructions: APPLY SPARINGLY TO AFFECTED AREA 1 to 2 TIMES DAILY desonide 0.05 % cream 1 applic topical BID PRN ketoconazole 2 % shampoo 1 applic topical DIRECTED PRN Rx Instructions: Apply while showering, leave in for 3-5 minutes then wash out. fluticasone propion-salmeterol 500-50 mcg/dose blister with device 1 inh inhalation BID PRN losartan 25 mg tablet 25 mg PO DAILY clonazepam 0.5 mg tablet 0.5 mg PO QDAY Qty: 90 1RF atenolol 50 mg tablet 50 mg PO BID Qty: 14 0RF Follow Up/Referrals: Yaima Mcclure MD [Primary Care Provider] - Stand Alone Forms: [email or web address] Info Instructions
--- OUTSIDE RECORDS SUMMARY | 2024-05-21 17:00 | XMS_ITS | Clinical Summary ---
Author Organization [facility] Address [place], [place] [address] Care Team Providers Care Amf Mechanic Name Role Phone Yaima Mcclure MD Primary Care Provider [phone] Allergies No known active allergies Medications Medication [...] for Constipation. Active losartan (COZAAR) 25 mg tabletIndications:PHT (pulmonary hypertension) (HC) Take 1 Tablet (25 mg) by mouth two times daily. 60 Tablet 2 04/19/2024 Active hydroCHLOROthiazide 25 mg tabletIndications:HTN (hypertension),PHT (pulmonary hypertension) (HC),Shortness of breath Take 1 Tablet (25 mg) by mouth once daily. 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 07/26/2020 Morbid obesity due to excess calories 07/26/2020 HTN (hypertension) 07/26/2020 Mixed hyperlipidemia 07/26/2020 Atrial flutter 07/26/2020 Encounters Date Type Department Care Team Description 04/28/2024 Orders Only [facility] Staff, Other Clinical 1 scan: (1-Ord) [facility] 04/27/2024 Orders Only [facility] Staff, Other Clinical 1 scan: (1-Ord) [facility] 04/25/2024 Telephone [facility] [address] [facility] [address] [place] [address] Maikel Mitchell MD Results 04/19/2024 2:00 PM CDT Office Visit [place] [id number] [facility] [address] [place] [address] Maikel Mitchell MD CV Heart Failure Est (OVERDUE F/U. ECHO PRIOR at [facility] on 04/03 - DX: PHT (pulmonary hypertension) (HC) [I27.20] /WATCH FOR ECHO //PT STATES HE IS DOING GREAT./) 04/19/2024 Travel 04/03/2024 2:00 PM CDT Ancillary Procedure [facility] [address] [place] [address] from Last 3 Months Social History Tobacco [...] 65+ (1 of 1 - PCV) 2003 RSV vaccine for adults or pr egnancy (1 - 1-dose 75+ series) 2013 COVID-19 vaccine series ( season) 2024 Influenza for age 65+ 04/23/2024 BMI (ht and wt on same day) for age 18+ 04/19/2025 0 04/19/2024, 09/29/2023 Procedures Procedure Name Priority Date/Time Associated Diagnosis Comments SCAN CORRESP-LABORATORY RESULTS 04/28/2024 11:24 AM CDT SCAN CORRESP-LABORATORY RESULTS 04/26/2024 2:09 PM CDT EKG 12 LEAD Today 04/19/2024 1:58 PM CDT HTN (hypertension) PHT (pulmonary hypertension) (HC) ECHO TTE COMPLETE WO CONTRAST Routine 04/03/2024 2:45 PM CDT PHT (pulmonary hypertension) (HC) from Last 3 Months Results * SCAN CORRESP-LABORATORY RESULTS (04/28/2024 11:24 AM CDT) Only the most recent of2 resultswithin the time period is included. Narrative 04/28/2024 11:24 AM CDT Ordered by an unspecified provider. Other Clinical Staff OTHER * EKG 12 LEAD (04/19/2024 1:58 PM CDT) Interpretation Atrial fibrillation Nonspecific ST and T wave abnormality Abnormal ECG No previous ECGs available Ventricular Rate 63 BPM Atrial Rate BPM P-R Interval ms QRS Duration 104 ms QT 432 ms QTc 442 ms P [place] degrees R [place] 39 degrees T [place] -67 degrees 04/19/2024 1:58 PM CDT 04/21/2024 [...] CDT Narrative 04/03/2024 2:59 PM CDT ECHOCARDIOGRAM JOHN GREGORY ?Accession#: ?? [id number] : ?1940 83 years Study Date: ?? 04/03/2024 1:51:05 PM Gender: M ? BP: ? 150/76 mmHg Height: 168.00 cm ? BSA: ?2.01 m? ? ? Weight: 91.00 kg ?Tech: ? MJW ?Referring MD: MAIKEL MITCHELL Site: ? [facility] Reading Location: Mobile-OP Patient Location: Outpatient. Procedure: [...] . This study was interpreted by an [facility] accredited facility. CC: [facility] (med records) [facility]. ??Final ?? Procedure Note Don Marc MD - 04/03/2024 ECHOCARDIOGRAM JOHN GREGORY : 1940 83 years Study Date: 04/03/2024 1:51:05 PM Gender: M BP: 150/76 mmHg Height: 168.00 cm BSA: 2.01 m? ? ? Weight: 91.00 kg Tech: SHALONDA Referring MD: MAIKEL MITCHELL Site: [facility] Reading Location: Mobile-OP Patient Location: [...] . This study was interpreted by an [facility] accredited facility. CC: [facility] (med records) [facility]. Final Maikel Mitchell MD ECHO ORD from Last 3 Months Care Teams Amf Mechanic Relationship Specialty Start Date End Date Yaima Mcclure MD [address] [place] [address] PCP - General Internal Medicine 09/29/23
[2024-05-21] MEDS: DOCUSATE SODIUM/BENZOCAINE 5 ML ENEMA PR (17:54)
--- NOTE | 2024-05-21 18:29 | ED.NURSE ---
Patient had large results with enema. Discharge instruction given to spouse.
== END 2024-05-21 18:38 | disposition home or self-care (01) ==
PROVIDERS: Emergency Provider Family Medicine; PCP Internal Medicine
DX: K59.09 Other constipation (principal)
CPT/HCPCS: 74019; 99283; 99284; A9270

== ENCOUNTER 2024-09-26 08:15 | Outpatient (CLI) | payer OTHER, SELFPAY | END 2024-09-26 08:16 | disposition home or self-care (01) | LOC: NFLDREF 09-27 01:55 | PROVIDERS: PCP Internal Medicine; Referring Provider Internal Medicine; Visit Provider Internal Medicine | DX: I10 Essential (primary) hypertension (principal); I25.10 Atherosclerotic heart disease of native coronary artery without angina pectoris | CPT/HCPCS: 80048; 80061 ==

== ENCOUNTER 2024-12-20 09:41 | Outpatient (CLI) | payer OTHER, SELFPAY ==
[2024-12-20 11:54] LABS: Chloride* 104 mmol/L (96-114); Potassium* 5.1 mmol/L (3.6-5.1); Sodium* 140 mmol/L (135-149)
[2024-12-20 11:57] LABS: Anion Gap 9 mEq/L (7-15); Blood Urea Nitrogen* 71 mg/dL (7-30); Calcium* 8.5 mg/dL (8.4-10.6); Carbon Dioxide* 27 mmol/L (20-32); Creatinine* 3.6 mg/dL (0.5-1.5); Estimated Glomerular Filt Rate 16 ml/min; Glucose* 92 mg/dL (60-115)
[2024-12-20 13:51] LABS: NT Pro B Type NatriureticPept* 12600 pg/mL
== END 2024-12-20 09:42 | disposition home or self-care (01) ==
LOC: NPINS 09:43
PROVIDERS: PCP Internal Medicine; Visit Provider Internal Medicine
DX: I50.32 Chronic diastolic (congestive) heart failure (principal); R60.9 Edema, unspecified
CPT/HCPCS: 80048; 83880

== ENCOUNTER 2024-12-25 14:47 | Outpatient (CLI) | payer OTHER, SELFPAY | END 2024-12-25 14:48 | disposition home or self-care (01) | LOC: RAD 14:49 | PROVIDERS: PCP Internal Medicine; Visit Provider Nurse Practitioner | DX: I27.20 Pulmonary hypertension, unspecified (principal); I25.10 Atherosclerotic heart disease of native coronary artery without angina pectoris; I51.7 Cardiomegaly; I35.1 Nonrheumatic aortic (valve) insufficiency; I34.0 Nonrheumatic mitral (valve) insufficiency; I07.1 Rheumatic tricuspid insufficiency; R06.02 Shortness of breath | CPT/HCPCS: 93306 ==

== ENCOUNTER 2024-12-27 09:49 | Outpatient (CLI) | payer OTHER, SELFPAY ==
[2024-12-27 11:25] LABS: Chloride* 106 mmol/L (96-114); Potassium* 5.3 mmol/L (3.6-5.1); Sodium* 138 mmol/L (135-149)
[2024-12-27 11:27] LABS: Blood Urea Nitrogen* 56 mg/dL (7-30); Creatinine* 2.4 mg/dL (0.5-1.5); Estimated Glomerular Filt Rate 26 ml/min
[2024-12-27 11:28] LABS: Anion Gap 7 mEq/L (7-15); Calcium* 8.9 mg/dL (8.4-10.6); Carbon Dioxide* 25 mmol/L (20-32); Glucose* 129 mg/dL (60-115)
== END 2024-12-27 09:50 | disposition home or self-care (01) ==
LOC: NPINS 09:50
PROVIDERS: PCP Internal Medicine; Visit Provider Internal Medicine
DX: I50.32 Chronic diastolic (congestive) heart failure (principal)
CPT/HCPCS: 80048

== ENCOUNTER 2025-04-26 15:45 | Outpatient (CLI) | payer OTHER, SELFPAY | END 2025-04-26 15:46 | disposition home or self-care (01) | LOC: NFLDREF 05-02 10:02 | PROVIDERS: PCP Internal Medicine; Referring Provider Internal Medicine; Visit Provider Internal Medicine | DX: R30.0 Dysuria (principal) | CPT/HCPCS: 87086 ==